=== PATIENT | male | born 1975 | race Caucasian/White ===

== ENCOUNTER 2019-07-06 17:17 | Observation (INO) ==
[2019-07-06] MEDS ORDERED: Isovue-370 500 ML BOTTLE IVP ONE (17:31)
[2019-07-06 17:51] LABS: Hematocrit 45.4 % (37.5-50.1); Hemoglobin 15.1 g/dL (12.9-16.9); Immature Granulocytes % 0.3 % (0-4); Mean Corpuscular HGB Conc 33.3 g/dL (31.6-35.5); Mean Corpuscular Hemoglobin 29.5 pg (28.0-33.3); Mean Corpuscular Volume 88.8 fL (83.0-100.0); Platelet Count 218 K/mcL (140-400); Red Blood Count 5.11 M/mcL (4.19-5.50); Red Cell Distribution Width 12.7 % (11.5-14.5); Segmented Neutrophils % 67.9 %; White Blood Count 8.7 K/mcL (4.3-11.1)
[2019-07-06 17:52] LABS: Basophils # 0.1 K/mcL (0.0-0.2); Basophils % 0.6 %; Eosinophils # 0.2 K/mcL (0.0-0.6); Eosinophils % 2.3 %; Lymphocytes # 1.7 K/mcL (0.6-4.6); Lymphocytes % 19.9 %; Monocytes # 0.8 K/mcL (0.0-1.3); Neutrophils # 5.9 K/mcL (1.6-8.9)
[2019-07-06 18:11] LABS: BUN/Creatinine Ratio 13 (6-26); Blood Urea Nitrogen 16 mg/dL (6-20); Calcium 9.6 mg/dL (8.6-10.3); Carbon Dioxide 26 mEq/L (23-29); Chloride 99 mEq/L (98-107); Glucose 90 mg/dL (70-105); Lipase 9 Units/L (11-82); Osmolality,Calculated 283 (280-300); Potassium 4.2 mEq/L (3.5-5.1); Sodium 136 mEq/L (136-145); eGFR For African Americans > 60 (> 60); eGFR For Non-African Americans > 60 (> 60)
[2019-07-06] MEDS ORDERED: Lidocaine -MPF 2% 2 ML VIAL ONE (19:55)
[2019-07-06] MEDS ORDERED: Ketorolac 30 MG/ML VIAL ONE (19:55)
[2019-07-06] MEDS ORDERED: *HR* Rocuronium Bromide 50 MG/5 ML VIAL ONE (19:55)
[2019-07-06] MEDS ORDERED: *HR* Midazolam HCl 2 MG/2 ML VIAL ONE (19:55)
[2019-07-06] MEDS ORDERED: Ondansetron 4 MG/2 ML VIAL ONE (19:55)
[2019-07-06] MEDS ORDERED: Neostigmine Methylsulfate 3 MG/3 ML SYRINGE ONE (19:55)
[2019-07-06] MEDS ORDERED: Dexamethasone 4 MG/ML VIAL ONE (19:55)
[2019-07-06] MEDS ORDERED: *HR* FentaNYL (PF) 100 MCG/2 ML VIAL ONE (19:55)
[2019-07-06] MEDS ORDERED: *HR* Propofol 200 MG/20 ML VIAL IVP ONE ×2 (19:56→20:46)
[2019-07-06] MEDS ORDERED: CefOXitin 1,000 MG VIAL ONE (19:58)
[2019-07-06] MEDS ORDERED: *HR* OxyCODONE Immed Rel 5 MG TABLET PO PRN (20:08)
[2019-07-06] MEDS ORDERED: *HR* Meperidine 25 MG/ML SYRINGE IVP PRN (20:08)
[2019-07-06] MEDS ORDERED: Ondansetron 4 MG/2 ML VIAL IVP ONE (20:08)
[2019-07-06] MEDS ORDERED: *HR* Promethazine 25 MG/ML VIAL IVP PRN (20:08)
[2019-07-06] MEDS ORDERED: *HR* HYDROmorphone PF 0.5 MG/0.5 ML SYRINGE IVP PRN (20:08)
[2019-07-06] MEDS ORDERED: Acetaminophen IV 1,000 MG/100 ML INFUS..BTL ONE (20:48)
[2019-07-06] MEDS ORDERED: 0.9 % Sodium Chloride 1,000 ML IVC SCH (21:15)
[2019-07-06] MEDS ORDERED: Ondansetron 4 MG/2 ML VIAL IVP PRN (21:15)
[2019-07-06] MEDS: *HR* OxyCODONE/APAP 5/325 TABLET PO PRN (23:18)
[2019-07-07] MEDS: *HR* OxyCODONE/APAP 5/325 TABLET PO PRN (03:50)
[2019-07-07] MEDS ORDERED: cefOXitin 2,000 MG in Water for inj. (sterile) 20 ML IVP SCH (04:00)
[2019-07-07 06:42] VITALS: BP 132/83
[2019-07-07] MEDS ORDERED: Ibuprofen 800 MG TABLET PO ONE (08:22)
[2019-07-07] MEDS ORDERED: lisinopriL 20 MG TABLET PO SCH (09:00)
== END 2019-07-07 09:41 | disposition home or self-care (01) ==
LOC: EMEROOARM 17:17 → 3ANU 17:17
PROVIDERS: ADMIT Surgery; ATTEND Surgery